=== PATIENT | female | born 1995 | race Hispanic/Latino ===

== ENCOUNTER 2018-06-05 10:11 | Emergency (ER) | payer SELFPAY ==
[2018-06-05] MEDS ORDERED: ACETAMINOPHEN 325 MG TAB ONE (10:45)
== END 2018-06-05 11:05 | disposition home or self-care (01) ==
LOC: EDH 10:11
DX: S82.62XA Displaced fracture of lateral malleolus of left fibula, initial encounter for closed fracture (principal); S92.352A Displaced fracture of fifth metatarsal bone, left foot, initial encounter for closed fracture; W01.0XXA Fall on same level from slipping, tripping and stumbling without subsequent striking against object, initial encounter; Y93.89 Activity, other specified; Y92.89 Other specified places as the place of occurrence of the external cause; Y99.8 Other external cause status
CPT/HCPCS: 29515; 73610; 73630